=== PATIENT | female | born 1995 | race Caucasian/White ===

== ENCOUNTER 2018-06-19 17:36 | Emergency (ER) | payer OTHER ==
[~2018-06-19] VITALS: Ht 162.6 cm; Wt 72.6 kg
[2018-06-19 17:40] VITALS: BP 142/83
--- NOTE | 2018-06-19 18:08 | ED HEADACHE COMPLAINT ---
History of Present Illness General Chief Complaint: Headache Stated Complaint: SENT IN BY [facility] FOR SHORE Source: patient Exam Limitations: no limitations Vital Signs & Intake/Output Vital Signs & Intake/Output Vital Signs Date Time Temp Pulse Resp B/P B/P Pulse O2 O2 Flow FiO2 Mean Ox Delivery Rate 06/19 1740 96.5 81 18 142/83 98 Room Air Allergies Coded Allergies: NO KNOWN ALLERGIES (06/19/18) Reconcile Medications Fiorinal (Fiorinal 50-325-40 MG Capsule) 50 MG-325 MG-40 MG CAPSULE 1 TAB PO BID PRN headache Fluoxetine HCl (Prozac) 40 MG CAPSULE 1 CAP PO DAILY BIPOLAR DISORDER ( Reported) Lamotrigine (Lamictal) 100 MG TABLET 1 TAB PO DAILY BIPOLAR DISORDER ( Reported) Norethindrone-E.estradiol-Iron (Junel Fe 1.5 MG-30 Mcg Tablet) (Unknown Strength ) TABLET (Unknown Dose) PO DAILY CONTROL (Reported) Zolpidem Tartrate (Ambien) 10 MG TABLET 1 TAB PO QPM SLEEP (Reported) Triage Note: PT TO ER C/C "MIGRAINE HEADACHE" ON AND OFF X 4 DAYS. INTENSITY 5/10 TOOK MOTRIN 2 HRS AGO. +NAUSEA +PHOTOSENSITIVITY Triage Nurses Notes Reviewed? yes Onset: Gradual Duration: day(s): Timing: recent history Quality/Severity: moderate, achy Head Injury Location: frontal : No Patient currently breastfeeds: No HPI: 22-year-old female presents emergency department complaining of headache intermittently for the past 4 days. Patient has a history of headaches in the past however she has never had a headache lasting this duration. Headache currently described as 5/10 aching, bilateral frontal and behind the eyes. Patient was seen 4 days ago at [place] for a headache. She states that gave her IV Toradol and Reglan and didn't do anything else. Patient states her headache resolved and they sent her home. Patient has never seen a specialist for her headaches. Patient states that in [address] a head CT scan which was normal, they diagnosed her with ocular migraines. Patient reports associated nausea, photophobia, blurry vision, head injury or trauma, fevers, skin rash. Past History Travel History Traveled to [place] past 21 day No Medical History Any Pertinent Medical History? see below for history Neurological: OCCULAR MIGRAINE Surgical History Surgical History: non-contributory Psychosocial History What is your primary language French Tobacco Use: Quit >30 days ago Family History Hx Contributory? No Review of Systems Review of Systems Constitutional: Reports: no symptoms. Eyes: Reports: see HPI. Ears, Nose, Throat, Mouth: Reports: no symptoms. Respiratory: Reports: no symptoms. Cardiovascular: Reports: no symptoms. Gastrointestinal/Abdominal: Reports: see HPI. Genitourinary: Reports: no symptoms. Musculoskeletal: Reports: no symptoms. Skin: Reports: no symptoms. Neurological/Psychological: Reports: see HPI. Hematologic/Endocrine: Reports: no symptoms. Endocrine: Reports: no symptoms. Immunologic/Allergic: Reports: no symptoms. All Other Systems: Reviewed and Negative Physical Exam Physical Exam General Appearance: well developed/nourished, no apparent distress, alert, awake Head: atraumatic, normal appearance Eyes: Bilateral: normal appearance, PERRL, EOMI. Ears, Nose, Throat: normal pharynx, normal ENT inspection, hearing grossly normal Neck: normal inspection, supple, full range of motion, No meningismus Respiratory: normal breath sounds, no respiratory distress, lungs clear Cardiovascular: regular rate/rhythm Gastrointestinal: soft, non-tender Back: normal inspection, normal range of motion Extremities: normal inspection, normal range of motion Psychiatric: awake, alert, oriented x 3 Cranial Nerves: normal hearing, normal speech, PERRL, cranial nerves 2 through 12 intact Coordination/Gait: normal gait Motor/Sensory: no motor/sensory deficits Skin: intact, normal color, warm/dry Core Measures Sepsis Present: No Sepsis Focused Exam Completed? No Progress Differential Diagnosis: cav sinus thromb, cluster SHORE, encephalitis, IC mass/ tumor, intracranial Hem., meningitis, migraine SHORE, sinusitis, subarach. Hem., tension SHORE Plan of Care: Orders Procedure Date/time Status URINE 06/19 1742 Complete URINALYSIS 06/19 1742 Complete COMPREHENSIVE METABOLIC PANEL 06/19 1742 Complete CBC WITHOUT DIFFERENTIAL 06/19 1742 Complete Laboratory Tests 06/19/18 1826: Urine Color STRAW, Urine Clarity CLEAR, Urine pH 6.0, Ur Specific [place] <= 1.005, Urine Protein NEG, Urine Ketones TRACE H, Urine Nitrite NEG, Urine Bilirubin NEG, Urine Urobilinogen 0.2, Ur Leukocyte Esterase NEG, Ur Microscopic SEDIMENT EXAMINED, Urine RBC 10-15 H, Urine WBC 1-3 H, Ur Epithelial Cells MOD H, Urine Bacteria MOD H, Urine Hemoglobin LARGE H, Urine Glucose NEG, Urine Test NEGATIVE 06/19/185: Anion Gap 14, Estimated GFR > 60, BUN/Creatinine Ratio 11.3, Glucose 87, Calcium 9.7, Total Bilirubin 0.6, AST 34, ALT 51, Alkaline Phosphatase 48, Total Protein 7.7, Albumin 4.7, Globulin 3.0, Albumin/Globulin Ratio 1.6, CBC w Diff NO MAN DIFF REQ, RBC 4.79, MCV 89.7, MCH 31.1 H, MCHC 34.7, RDW 12.7, MPV 7.5, Gran % 76.3 H, Lymphocytes % 17.3 L, Monocytes % 5.6, Eosinophils % 0.5, Basophils % 0.3, Absolute Granulocytes 6.8 H, Absolute Lymphocytes 1.5, Absolute Monocytes 0.5, Absolute Eosinophils 0, Absolute Basophils 0 Patient had CAT scan imaging 2 years ago with no acute abnormality detected at that time. She has never had MRI or neurology follow-up. Risks versus benefits to CT imaging today discussed with the patient. I informed the patient of the risks of radiation. It is unlikely that patient would have large mass based on recent imaging of the head in the past few years. There was no head trauma, low suspicion for traumatic brain bleeding. Patient is neurologically intact without focal neurologic deficit, she is in no acute distress, sitting in stretcher comfortably, she has had no vomiting, she answers questions readily, ambulates with steady gait. Shared decision making used in patient elects to decline CT imaging at this time. We'll obtain labs start IV medication. No fever, petechial rash, meningismus to indicate acute meningitis. One hour following IV medications patient reported significant relief of her headache. She is comfortable going home at this time. Patient agrees with plan for neurology follow-up. She will try Fioricet by mouth take at home for further headaches. Patient is comfortable going home without CT imaging of her head today based on discussion as mentioned above. Patient ambulatory with a steady gait upon leaving the emergency department. She is given strict return precautions which she understands. Departure Departure Disposition: HOME OR SELF CARE Condition: Stable Clinical Impression Primary Impression: Headache Qualifiers: Headache type: unspecified Headache chronicity pattern: acute headache Intractability: not intractable Qualified Code: R51 - Headache Referrals: Patient Has No Primary Care Dr (PCP/Family) Additional Instructions: Take Fioricet as prescribed for headaches if needed. Follow-up with the neurologist you're referred to today for further evaluation of your headache. She may require imaging such as an MRI. If they've any worsening symptoms including worsening headache, fainting episode, abdominal pain, severe vomiting please return to the emergency department. Please note that there might be incidental findings in your evaluation that are unrelated to the current emergency department visit. Please notify your primary care doctor about this emergency department visit in order to obtain and review all of the testing performed so that these incidental findings can be monitored as needed. If you had an x-ray performed, please understand that some fractures may not be seen on the initial set of x-rays. If your symptoms persist you might need a repeat set of x-rays to check for such a fracture. If you had a laceration evaluated, please understand that foreign bodies such as glass or wood may not be visible to the naked eye or on plain x-rays. If the wound becomes red, swollen, increasingly more painful or if there is any drainage from the wound, please have it reevaluated by a physician for the possibility of a retained foreign body. If you're unable to follow up as outlined in the discharge instructions please return to the emergency department. Thank you for choosing the [facility] for your care. It was a pleasure to serve you today. Departure Forms: Customer Survey General Discharge Information Prescriptions: Current Visit Scripts Fiorinal (Fiorinal 50-325-40 MG Capsule) 1 TAB PO BID PRN headache #12 TAB
[2018-06-19 18:31] LABS: ABSOLUTE BASOPHIL COUNT 0 /CUMM (0.0-0.2); ABSOLUTE EOSINOPHIL COUNT 0 /CUMM (0.0-0.7); ABSOLUTE GRANULOCYTE CT 6.8 /CUMM (1.4-6.5); ABSOLUTE LYMPH COUNT 1.5 /CUMM (1.2-3.4); ABSOLUTE MONOCYTE COUNT 0.5 /CUMM (0.10-0.60); BASOPHIL % 0.3 % (0.0-2.0); EOSINOPHIL % 0.5 % (0-5); GRANULOCYTE % 76.3 % (42.2-75.2); MEAN CORPUSCULAR HGB 31.1 PG (27.0-31.0); MEAN CORPUSCULAR HGB CONC 34.7 G/DL (33.0-37.0); MEAN CORPUSCULAR VOLUME 89.7 FL (81.0-99.0); MEAN PLATELET VOLUME 7.5 FL (7.4-10.4); PLATELET COUNT 287 /CUMM (130-400); RBC DISTRIBUTION WIDTH 12.7 % (11.5-14.5); RED BLOOD CELL CT 4.79 /CUMM (4.20-5.40); WHITE BLOOD CELL COUNT 8.9 /CUMM (4.8-10.8)
[2018-06-19] MEDS ORDERED: LAMICTAL100 M2 PO (18:42)
[2018-06-19] MEDS ORDERED: AMBIEN10 M1 PO (18:42)
[2018-06-19] MEDS ORDERED: PROZAC40 M1 PO (18:42)
[2018-06-19] MEDS ORDERED: JUNEL FE 1.5 M1 EACH PO (18:43)
[2018-06-19] MEDS ORDERED: FIORINAL 50-321 EACH PO (19:43)
== END 2018-06-19 19:56 ==
LOC: ERH 17:36
PROVIDERS: Physician Assistant
DX: R51 Headache (principal)
CPT/HCPCS: 81001; 81025; 96374; 96375; J1200; J1885; J2765